=== PATIENT | male | born 1935 | race African-American/Black ===

== ENCOUNTER 2017-09-19 09:53 | Emergency (ER) | payer MEDICARE, MEDICAID ==
[~2017-09-19] VITALS: Ht 180.3 cm; Wt 65.0 kg
[2017-09-19] MEDS ORDERED: KETOROLAC 30MG/ML VIAL IV STA (12:53)
[2017-09-19] MEDS ORDERED: ONDANSETRON HCL 4MG/2ML VIAL IV STA (12:53)
[2017-09-19 13:28] LABS: HEMATOCRIT. 36.6 % (42.0-52.0); HEMOGLOBIN. 11.7 g/dL (14.0-18.0); MEAN CORPUSCULAR HEMOGLOBIN 24.9 pg (28.0-32.0); MEAN CORPUSCULAR VOLUME 77.9 fL (80.0-94.0); MEAN PLATELET VOLUME 8.9 fl (7.4-10.4); PLATELET 188 x1000/uL (130-400); RED BLOOD CELL COUNT 4.69 mill/uL (4.7-6.1); RED CELL DISTRIBUTION WIDTH 16.8 % (11.6-14.6)
[2017-09-19 13:31] LABS: CHLORIDE 105 mEq/L (98-107)
[2017-09-19 13:32] LABS: INR 1.1; PROTHROMBIN TIME 11.4 sec (9.4-11.6)
[2017-09-19 13:39] LABS: CARBON DIOXIDE 26 mEq/L (21-32)
[2017-09-19 13:58] LABS: PLATELET ESTIMATE NORMAL
[2017-09-19 14:55] LABS: CLARITY URINE CLEAR (CLEAR); COLOR URINE YELLOW (YELLOW); KETONES URINE TRACE (NEGATIVE); LEUKOCYTE ESTERASE URINE NEGATIVE (NEGATIVE); NITRITE URINE NEGATIVE (NEGATIVE); OCCULT BLOOD URINE NEGATIVE (NEGATIVE); PROTEIN URINE 2+ (NEGATIVE); SPECIFIC GRAVITY URINE 1.021 (1.005-1.030); UROBILINOGEN URINE 0.2 E.U./dL (0.2-1.0)
[2017-09-19 15:29] VITALS: BP 154/101
== END 2017-09-19 17:29 | disposition home or self-care (01) ==
LOC: ER 10:09
DX: K56.41 Fecal impaction (principal); K22.8 Other specified diseases of esophagus; N32.89 Other specified disorders of bladder; N20.0 Calculus of kidney; J90 Pleural effusion, not elsewhere classified; J98.11 Atelectasis; N26.1 Atrophy of kidney (terminal); I10 Essential (primary) hypertension; Z85.9 Personal history of malignant neoplasm, unspecified
CPT/HCPCS: 36415; 74176; 80053; 81001; 83690; 85025; 85610; 96374; 96375; 99285; J1885; J2405